=== PATIENT | female | born 1945 | race Caucasian/White ===

== ENCOUNTER 2018-12-16 19:00 | Outpatient (CLI) | payer MEDICARE, BC | END 2018-12-16 23:59 | disposition home or self-care (01) | LOC: D.MAMMO 19:00 | PROVIDERS: ATTEND Family Medicine | DX: Z12.31 Encounter for screening mammogram for malignant neoplasm of breast (principal) ==

== ENCOUNTER 2020-05-26 16:00 | Outpatient (CLI) | payer MEDICARE, BC | END 2020-05-26 23:59 | disposition home or self-care (01) | LOC: D.MAMMO 16:00 | PROVIDERS: ATTEND Nurse Practitioner | DX: Z12.31 Encounter for screening mammogram for malignant neoplasm of breast (principal) ==